=== PATIENT | female | born 1995 | race Caucasian/White ===

== ENCOUNTER 2023-06-05 07:02 | Day surgery (SDC) | payer BC ==
[~2023-06-05] VITALS: Ht 160 cm; Wt 50.5 kg
[2023-06-05] VITALS (11 sets, daily range): BP systolic 79–105; BP diastolic 36–60; PULSE 58–90; TEMP 97.7–98.1
[2023-06-05] MEDS ORDERED: MOTRIN 800800 MG/TAB PO (09:38)
--- NOTE | 2023-06-05 13:30 | NUR ---
0925 RETURNS TO ROOM 1 PER CART FROM OR. RESP SPONTANEOUS, CLEAR. PATIENT DOES NOT AROUSE TO VERBAL STIMULI. HOB ELEVATED 25 DEGREES. VITAL SIGNS OBTAINED. ABD SOFT. NO VAGINAL BLEEDING OBSERVED. IN ROOM CALL LIGHT AT SIDE. 0940 PATIENT REMAINS VERY DROWSY, DOES RESPOND TO VERBAL STIMULI BY OPENING EYES. DENIES PAIN. 0955 REMAINS DROWSY, BUT CONVERSES SOME WITH 1010 MORE AWAKE. DENIES PAIN OR CRAMPING PARENTS AND IN ROOM 1025 LESS DROWSY, HOB ELEVATED 60 DEGREES. TOLERATES PO JUICE WITHOUT NAUSEA. 1040 TOLERATES PO SALTINES 1055 AWAITING LAB FOR BLOOD DRAW FOR RHOGAM 1110 AWAKE, ALERT. 1125 DISCHARGE INSTRUCTIONS REVIEWED. PATIENT AND VERBALIZE UNDERSTANDING. COPY PROVIDED IN DISCHARGE FOLDER
--- NOTE | 2023-06-05 13:30 | NUR ---
1155 AWAKE, ALERT. VISITS WITH FAMILY. DENIES PAIN OR ABD CRAMPING. NO VAGINAL BLEEDING. VPAD IN PLACE 1225 AWAITING RHOGAM 1306 RHOGAM DELIVERED FROM PHARMACY AFTER LABS COMPLETED 1315 PATIENT SITS ON EDGE OF BED. DRESSES SELF, THEN AMBULATES TO BATHROOM WITH STANDBY ASSIST. ADMITS TO VOIDING WITHOUT DIFFICULTY
== END 2023-06-05 13:33 | disposition home or self-care (01) ==
LOC: SDCO 07:02
DX: O02.1 Missed abortion (principal); Z3A.01 Less than 8 weeks gestation of pregnancy
CPT/HCPCS: J1885; J2405; J2704; J2791; J3010; J7120

== ENCOUNTER → 2023-08-22 | Outpatient (CLI) | payer BC ==
[~2023-08-22] MED LIST: MOTRIN 800800 MG/TAB PO
== END ==
LOC: COL.RAD 08:48
DX: N93.8 Other specified abnormal uterine and vaginal bleeding (principal); E28.8 Other ovarian dysfunction

== ENCOUNTER → 2023-09-18 | Outpatient (CLI) | payer BC | LOC: COL.LAB 16:37 | PROVIDERS: Family Medicine | DX: E28.8 Other ovarian dysfunction (principal); L68.0 Hirsutism ==

== ENCOUNTER → 2023-09-20 | Outpatient (CLI) | payer BC | LOC: COL.LAB 16:38 | PROVIDERS: Family Medicine | DX: E28.8 Other ovarian dysfunction (principal); L68.0 Hirsutism ==